=== PATIENT | male | born 1970 | race Caucasian/White ===

== ENCOUNTER → 2016-10-11 | Outpatient (CLI) | payer BC ==
--- OUTSIDE RECORDS SUMMARY | 2016-10-11 14:36 | XMS REPORT | Continuity of Care Document ---
Author Author [facility] Organization [facility] Address Unknown Phone Unavailable Allergies Medications Problems Date Dx Coded Attending Type Code Diagnosis Diagnosed By 05/05/2009 Ot 327.23 08/30/2014 Ot 959.7 08/30/2014 Ot E000.8 08/30/2014 Ot E030 08/30/2014 Ot E849.0 08/30/2014 Ot E928.9 08/30/2014 Ot 813.05 08/30/2014 Ot E000.8 08/30/2014 Ot E928.9 08/30/2014 Ot 785.2 08/30/2014 REMY HULL Ot 719.47 08/30/2014 Ot 959.7 08/30/2014 Ot E000.8 08/30/2014 Ot E030 08/30/2014 Ot E849.0 08/30/2014 Ot E928.9 08/30/2014 Ot 813.05 08/30/2014 Ot E000.8 08/30/2014 Ot E928.9 08/30/2014 Ot 785.2 08/30/2014 REMY HULL Ot 719.47 10/09/2016 Ot 813.05 FX RADIUS HEAD-CLOSED 10/09/2016 Ot E000.8 OTHER EXTERNAL CAUSE STATUS 10/09/2016 Ot E928.9 ACCIDENT NOS 10/09/2016 Ot 785.2 CARDIAC MURMURS NEC 10/09/2016 REMY HULL 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 Visit Date/Time Discharge Status Pt. Type Provider Facility Loc./Unit Complaint [id number] 12/22/2013 15:02:00 2013 23:59:59 CLS Outpatient REMY HULL [facility] RAD MTP JOINT PAIN [id number] 10/11/2016 14:32:00 ACT Outpatient ORELEVON NEGRON DO [facility] RAD NECK PAIN,ARM RADICULOPATHY [id number] 07/05/2011 12:10:00 Document Registration [id number] 06/24/2011 17:48:00 Document Registration [id number] 07/10/2009 16:29:00 Document Registration [id number] 05/04/2009 19:40:00 Document Registration
--- NOTE | 2016-10-11 15:33 | Diagnostic Imaging Report ---
PROCEDURE: MR imaging cervical spine without contrast. TECHNIQUE: Multiplanar, multisequence MR imaging of the cervical spine was performed without contrast. INDICATION: History of neck pain with numbness and burning sensation of the right upper extremity. COMPARISON: None. FINDINGS: Static alignment of the cervical spine is maintained. There is no significant anteroretrolisthesis. There is no evidence of jumped facets. Vertebral body heights are maintained. There is no evidence of acute fracture. Marrow signal is within normal limits throughout. There is mild intervertebral disc height loss and multilevel disc osteophyte complex formations. Small disc bulges are also noted. Cervical cord has a normal appearance. There is no evidence of cord edema. No abnormal intrathecal filling defects are seen. Included portions of the posterior fossa are unremarkable. Pre-and paravertebral soft tissue structures are within normal limits. Axial images demonstrate the following: C2- C3: There is no large disc bulge or focal protrusion. There is bilateral facet arthropathy, left greater than right. There is however no significant spinal canal or neuroforaminal stenosis. C3-C4: There is no large disc bulge or focal protrusion. There is bilateral uncovertebral hypertrophy and facet arthropathy, left greater than right. As a result, there may be mild narrowing of the left neuroforamen. Right neuroforamen and spinal canal are unremarkable. C4-C5: There is no large disc bulge or focal protrusion. There is no significant spinal canal or neuroforaminal stenosis. C5-C6: There is no large disc bulge or focal protrusion. There is no significant spinal canal or neuroforaminal stenosis. C6-C7: There is mild broad-based posterior disc bulge which results in minimal flattening of anterior thecal sac. There is no significant neuroforaminal stenosis. C7-T1: There is no large disc bulge or focal protrusion. There is no significant spinal canal or neuroforaminal stenosis. IMPRESSION: 1. Mild multilevel degenerative changes of the cervical spine, but no significant spinal canal or neuroforaminal stenosis throughout. 2. No acute fracture or dislocation. Dictated by: Dictated on workstation # [id number]
== END ==
LOC: RAD 14:32
PROVIDERS: ATTEND Family Medicine
DX: M47.22 Other spondylosis with radiculopathy, cervical region (principal)
CPT/HCPCS: 72141

== ENCOUNTER → 2019-04-12 | Outpatient (CLI) | payer BC ==
--- NOTE | 2019-04-12 17:12 | Diagnostic Imaging Report ---
PROCEDURE: US Thyroid. TECHNIQUE: Multiple real-time grayscale images were obtained of the thyroid in various projections. INDICATION: Familial thyroid cancer Findings: No comparison available. The right lobe of the thyroid measures 5.1 x 2.1 x 1.6 cm. No suspicious nodules are seen. Size and echogenicity is normal. Left lower the thyroid measures 5.1 x 1.8 x 1.6 cm. The size and echogenicity is normal. No suspicious nodules are seen. The isthmus measures 3 mm. IMPRESSION: 1. Normal thyroid gland. Dictated by: Dictated on workstation # [id number]
== END ==
LOC: RAD 15:46
PROVIDERS: ATTEND Family Medicine
DX: C73 Malignant neoplasm of thyroid gland (principal)
CPT/HCPCS: 76536

== ENCOUNTER → 2022-01-09 | Outpatient (CLI) | payer BC ==
[~2022-01-09] VITALS: Ht 180.3 cm; Wt 112.0 kg
[~2022-01-09] MED LIST: ASCO500C17 PO; CHOL400T29 PO; CYAN-23 PO; MULT-593 PO; OMG1KC PO; PRAV40TA2 PO; ZINC50TA11 PO
== END | disposition home or self-care (01) ==
LOC: PREOP 05:48
PROVIDERS: ATTEND Internal Medicine
DX: Z01.818 Encounter for other preprocedural examination (principal)

== ENCOUNTER 2022-12-04 05:51 | Outpatient (CLI) | payer BC ==
[~2022-12-04] VITALS: Ht 180.3 cm; Wt 117.7 kg
[2022-12-05] MEDS ORDERED: OMEG100032 PO (08:35)
== END 2022-12-05 08:37 | disposition home or self-care (01) ==
LOC: PREOP 05:51
PROVIDERS: ATTEND Internal Medicine
DX: Z01.818 Encounter for other preprocedural examination (principal)

== ENCOUNTER 2022-12-13 07:52 | Day surgery (SDC) | payer BC ==
--- NOTE | 2022-11-29 08:28 | HISTORY AND PHYSICAL ---
COLONOSCOPY HISTORY AND PHYSICAL HISTORY OF PRESENT ILLNESS: The patient is a 52-year-old white male who I initially saw for colonoscopy 1 year ago between his office visits and procedure, he came down with COVID. He reports complete recovery, but he is just not getting around rescheduling colonoscopy. He reports over the last year there have been no changes in health status. He denies abdominal pain, bright red blood per rectum or change in bowel habits. PAST MEDICAL HISTORY: Significant for hyperlipidemia and obesity. Current BMI 35. 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 He has had no significant surgeries in the past 5 years and no past history of abdominal surgery. FAMILY HISTORY: He reports still has no family history for colon cancer. His father did have some colon polyps removed when he was in either his late 60s or early 70s. PHYSICAL EXAMINATION: GENERAL: Reveals a white male, appeared to be in no acute distress. VITAL SIGNS: Weight 259 pounds, BMI 35, blood pressure 104/78, heart rate 70 and regular. HEENT: Unremarkable. Sclerae nonicteric. CHEST: Clear. CARDIOVASCULAR: Reveals a regular rate and rhythm without murmur, S3, or S4. ABDOMEN: Soft, supple without mass, organomegaly, or tenderness. EXTREMITIES: Revealed no cyanosis, clubbing or edema. ASSESSMENT AND PLAN: The patient is being set up for his first screening colonoscopy, deemed to be of average risk. He was seen in the office due to the fact that his BMI is 35 with obstructive sleep apnea. He qualifies for ASA category 3. Prep instructions were given and questions were answered. I thank you for the referral of this pleasant gentleman. Job ID: [id number] DocumentID: [id number] Dictated Date: 11/20/2022 13:30:53 Gift Basket Packer Date: 11/20/2022 13:52:00 Dictated By: SILVANA ESPINOZA MD
[~2022-12-13] VITALS: Ht 180.3 cm; Wt 117.7 kg
[~2022-12-13 07:52] MED LIST changes: +OMEG100032 PO
--- NOTE | 2022-12-13 08:08 | Pre-Op Note & Conscious Sedat ---
Pre-Operative Progress Note Date H&P Reviewed: December 13, 2022 Time H&P Reviewed: 08:07 History & Physical: H&P Reviewed, Patient Examed, No changes noted Pre-Op Diagnosis: screening Moderate Sedation PreProcedure ASA Score 3 Airway Lungs Heart ASA score ASA 1: a normal healthy patient ASA 2: a patient with a mild systemic disease (mid diabetes, controlled hypertension, obesity ASA 3: a patient with a severe systemic disease that limits activity (angina, COPD, prior Myocardial infarction) ASA 4: a patient with an incapacitating disease that is a constant threat to life (CHF, renal failure) ASA 5: a moribund patient not expected to survive 24 hrs. (ruptured aneurysm) ASA 6: a declared brain- patient whose organs are being harvested. For emergent operations, add the letter E after the classification Mallampati Classification Grade 3 Sedation Plan Analgesia, Amnesia, Plan communicated to team members, Discussed options with patient/fam, Discussed risks with patient/fam The patient is an appropriate candidate to undergo the planned procedure, sedation, and anesthesia. The patient immediately re-assessed prior to indication. SILVANA ESPINOZA MD December 13, 2022 08:07
[2022-12-13 08:10] VITALS: BP 137/86
[2022-12-13] MEDS ORDERED: LACTATED RINGERS 1,000 ML IV STA (08:14)
[2022-12-13] MEDS ORDERED: LACTATED RINGERS 1,000 ML IV ONE ×2 (08:17→11:08)
[2022-12-13] MEDS ORDERED: PROPOFOL INJECTION 50 ML IV ONE (09:33)
[2022-12-13] MEDS ORDERED: LACTATED RINGERS 1,000 ML IV SCH (09:45)
[2022-12-13 10:00] VITALS: BP 108/64
[2022-12-13 10:05] VITALS: BP 108/64
--- NOTE | 2022-12-13 10:06 | Progress Note-Post Operative ---
Post-Procedure Note Physician (s)/Technical Internship (s) Physician SILVANA ESPINOZA MD Pre-Procedure Diagnosis Pre-Procedure Diagnosis: screening Post-Procedure Diagnosis Post-operative diagnosis: Prior to undergoing colonoscopy digital rectal evaluation was performed. Anal sphincter tone was normal and the perianal reflex was intact. No abnormalities noted on digital inspection of the anal canal or distal rectal vault. The prostate was unremarkable to digital inspection as well. The colonoscope was inserted into the rectum and under direct visualization advanced to the cecum. The cecum was identified by identification of the ileocecal valve and cecal strap. Photographic documentation was obtained. A careful inspection was made as the colonoscope withdrawn. Quality the prep was good. Findings: There were no evidence for internal/external hemorrhoids and the rectum was unremarkable. One 3 mm sessile polyp was noted in the distal sigmoid colon it was biopsied and ablated with no subsequent blood loss. The remainder the sigmoid colon descending colon splenic flexure transverse colon hepatic flexure ascending colon and cecum were unremarkable. A/P 1. One 3 mm polyp was removed from distal sigmoid colon with an otherwise normal colonoscopy to cecum including digital evaluation of the prostate. As long as there are no surprises on histopathology report we will advocate consideration for repeat screening colonoscopy in 10 years. I thank you for the referral this pleasant gentleman. Sincerely, Silvana Espinoza MD. CC: SILVANA Morgan MD December 13, 2022 10:06
[2022-12-13 10:22] VITALS: BP 108/64
--- NOTE | 2022-12-16 16:16 | Physician Query Clarification ---
LISANDRA RAI 12/16/22 1616: [id number] Proc Desc BodyOP Admission Canned Text Admission Date: Discharge Date: Procedures Procedures Performed Body of the Operative/Procedure Report: There is no detailed documentation specifying how polyp removal was done was done. 1. cold biopsy 2. hot biopsy 3. other, please specify Chief Executive Or Managing Director Note Note From Chief Executive Or Managing Director In responding to this query, please exercise your independent professional judgment. The purpose of this communication is to more accurately reflect the complexity of your patients condition. The fact that a question is asked does not imply that any particular answer is desired or expected. Thank you for your timely response to this clarification. Requestors name: [ ] Phone # [ ] THIS PHYSICIAN QUERY FORM IS A PERMANENT PART OF THE MEDICAL RECORD SILVANA ESPINOZA MD 12/18/22 1608: [id number] Proc Desc BodyOP Physician Response Details: Detailed desc below Chief Executive Or Managing Director Note Note From Chief Executive Or Managing Director hot biopsy LISANDRA RAI December 16, 2022 16:16 SILVANA ESPINOZA MD December 18, 2022 16:08
== END 2022-12-13 10:46 | disposition home or self-care (01) ==
LOC: ENDO 07:52
PROVIDERS: ATTEND Internal Medicine
DX: Z12.11 Encounter for screening for malignant neoplasm of colon (principal); K63.5 Polyp of colon; E66.9 Obesity, unspecified; G47.33 Obstructive sleep apnea (adult) (pediatric); Z68.36 Body mass index [BMI] 36.0-36.9, adult; Z86.16 Personal history of COVID-19; Z28.310 Unvaccinated for COVID-19
CPT/HCPCS: 88305

== ENCOUNTER 2023-03-28 22:54 | Emergency (ER) | payer BC ==
[~2023-03-28] VITALS: Ht 180.3 cm; Wt 107.0 kg
[2023-03-28 23:00] VITALS: BP 141/89
--- NOTE | 2023-03-28 23:58 | ED General ---
General Chief Complaint: Abdominal/GI Problems Stated Complaint: PAIN ON RT SIDE, SOA Nursing Triage Note: Pt presents with c/o RUQ abdominal pain that started around 2200 tonight. Pt reports pain radiated across upper abdomen and then to lower epigastric area. Pain caused shortness of breath, pt reports pain is subsiding, however he still feels like he needs to catch his breath. History of Present Illness Date Seen by Provider: Mar 28, 2023 Time Seen by Provider: 23:47 Initial Comments Patient is a 53yo male to the ER with a complaint of RUQ abdominal pain onset about 10pm this evening. He states that he has pain that seems to radiate across the upper abdomen. He feels like it is uncomfortable to take a deep breath. He did take some tylenol prior to coming in and the pain seems to be improving. No recent illnesses. Currently the pain is about a "3". No nausea. He does feel a little weak. No diarrhea. No urinary complaints. Nothing makes the pain any worse. He has a history of high cholesterol. Timing/Duration: 1-3 Hours Severity: Moderate Associated Systoms: Weakness Allergies and Home Medications Allergies Coded Allergies: No Known Drug Allergies (Unverified , 01/11/22) Patient Home Medication List Home Medication List Reviewed: Yes Ascorbic Acid (Vitamin C) 500 Mg Capsule, 500 MG PO DAILY, (Reported) Entered as Reported by: DOMINIC DAVIS on 01/11/221518 Cholecalciferol (Vitamin D3) (Vitamin D-400) 10 Mcg (400 Unit) Tablet, 10 MCG PO DAILY, (Reported) Entered as Reported by: DOMINIC DAVIS on 01/11/221518 Cyanocobalamin (Vitamin B-12) (Vitamin B-12) 1,000 Mcg Capsule, 1,000 MCG PO DAILY, (Reported) Entered as Reported by: DOMINIC DAVIS on 01/11/221518 Multivitamin with Minerals (Multiple Vitamin) 1 Each Tablet, 1 EACH PO DAILY, (Reported) Entered as Reported by: DOMINIC DAVIS on 01/11/221518 [place]-3/Dha/Epa/Fish Oil (Fish Oil 1,000 mg Softgel) 1,000 Mg (120 Mg-180 Mg) Capsule, 1,000 MG PO DAILY, (Reported) Entered as Reported by: CHAD SNOW on 12/05/22 0835 Pravastatin Sodium (Pravastatin Sodium) 40 Mg Tablet, 40 MG PO DAILY, (Reported) Entered as Reported by: DOMINIC DAVIS on 01/11/22 151 Zinc Gluconate (Zinc) 50 Mg Tablet, 50 MG PO DAILY, (Reported) Entered as Reported by: DOMINIC DAVIS on 01/11/22 1519 Review of Systems Review of Systems Constitutional: see HPI EENTM: no symptoms reported Respiratory: short of breath Cardiovascular: no symptoms reported Gastrointestinal: RUQ Genitourinary: no symptoms reported Musculoskeletal: no symptoms reported Skin: no symptoms reported Psychiatric/Neurological: No Symptoms Reported All Other Systems Reviewed Negative Unless Noted: Yes Past Wzypvff-Hyafip-Jtxiuq Hx Immunizations Up To Date First/Initial COVID19 Vaccinat: NO Second COVID19 Vaccination Jamir: NO Third COVID19 Vaccination Date: NO Seasonal Allergies Seasonal Allergies: No Past Medical History Surgeries: Yes (LEFT HAND/FINGER laceration) Orthopedic Respiratory: Yes Sleep Apnea Currently Using CPAP: Yes Cardiac: No Neurological: No Genitourinary: No Gastrointestinal: No Musculoskeletal: No Endocrine: No HEENT: No Cancer: No Psychosocial: No Integumentary: No Blood Disorders: No Physical Exam Vital Signs Vital Signs - First Documented 03/28/23 23:00 Temp 36.3 Pulse 67 Resp 16 B/P (MAP) 141/89 (106) Capillary Refill : Less Than 3 Seconds Height, Weight, BMI Height: '" Weight: lbs. oz. kg; 32.00 BMI Method: General Appearance: No Apparent Distress, WD/WN Eyes: Bilateral Eye Normal Inspection, Bilateral Eye PERRL, Bilateral Eye EOMI HEENT: PERRL/EOMI Neck: Normal Inspection Respiratory: Lungs Clear, Normal Breath Sounds, No Accessory Muscle Use, No Respiratory Distress Cardiovascular: Regular Rate, Rhythm, Normal Peripheral Pulses Gastrointestinal: Normal Bowel Sounds, Non Tender, Soft Extremity: Normal Inspection, Normal Range of Motion Neurologic/Psychiatric: Alert, Oriented x3, No Motor/Sensory Deficits, Normal Mood/Affect, frit mixer and burner II-XII Norm as Tested Skin: Normal Color, Warm/Dry Progress/Results/Core Measures Suspected Sepsis SIRS Temperature: Pulse: 67 Respiratory Rate: 16 Laboratory Tests 03/28/23 23:01: White Blood Count 10.5 Blood Pressure 141 /89 Mean: 106 Laboratory Tests 03/28/23 23:01: Creatinine 1.14, Platelet Count 314, Total Bilirubin 0.4 Results/Orders Lab Results Laboratory Tests Test 03/28/23 23:01 Range/Units White Blood Count 10.5 4.3-11.0 10^3/uL Red Blood Count 4.76 4.30-5.52 10^6/uL Hemoglobin 14.2 13.3-17.7 g/dL Hematocrit 42 40-54 % Mean Corpuscular Volume 89 80-99 fL Mean Corpuscular Hemoglobin 30 25-34 pg Mean Corpuscular Hemoglobin Concent 34 32-36 g/dL Red Cell Distribution Width 13.5 10.0-14.5 % Platelet Count 314 130-400 10^3/uL Mean Platelet Volume 10.3 9.0-12.2 fL Immature Granulocyte % (Auto) 0 % Neutrophils (%) (Auto) 67 42-75 % Lymphocytes (%) (Auto) 21 12-44 % Monocytes (%) (Auto) 9 0-12 % Eosinophils (%) (Auto) 2 0-10 % Basophils (%) (Auto) 1 0-10 % Neutrophils # (Auto) 7.0 1.8-7.8 10^3/uL Lymphocytes # (Auto) 2.2 1.0-4.0 10^3/uL Monocytes # (Auto) 1.0 0.0-1.0 10^3/uL Eosinophils # (Auto) 0.2 0.0-0.3 10^3/uL Basophils # (Auto) 0.1 0.0-0.1 10^3/uL Immature Granulocyte # (Auto) 0.0 0.0-0.1 10^3/uL Sodium Level 138 135-145 MMOL/L Potassium Level 4.2 3.6-5.0 MMOL/L Chloride Level 104 98-107 MMOL/L Carbon Dioxide Level 24 21-32 MMOL/L Anion Gap 10 5-14 MMOL/L Blood Urea Nitrogen 19 H 7-18 MG/DL Creatinine 1.14 0.60-1.30 MG/DL Estimat Glomerular Filtration Rate 78 BUN/Creatinine Ratio 17 Glucose Level 110 H 70-105 MG/DL Calcium Level 9.8 8.5-10.1 MG/DL Corrected Calcium 9.5 8.5-10.1 MG/DL Total Bilirubin 0.4 0.1-1.0 MG/DL Aspartate Amino Transf (AST/SGOT) 15 5-34 U/L Alanine Aminotransferase (ALT/SGPT) 28 0-55 U/L Alkaline Phosphatase 91 40-136 U/L Total Protein 7.7 6.4-8.2 GM/DL Albumin 4.4 3.2-4.5 GM/DL My Orders Orders - ADITHYA CHRISTINE MD Ekg Tracing (03/28/23 23:59) Cbc With Automated Diff (03/28/23 23:59) Comprehensive Metabolic Panel (03/28/23 23:59) Vital Signs/I&O 03/28/23 23:00 Temp 36.3 Pulse 67 Resp 16 B/P (MAP) 141/89 (106) Capillary Refill : Less Than 3 Seconds Blood Pressure Mean: 106 Progress Note : Time: 01:25 Progress Note Patient seen and examined by me. Evaluation today includes physical exam, CBC, CMP and EKG. Pertinent physical exam findings - WDWN male in NAD. Heart is regular, Lungs are clear. Abdomen is soft and non tender. Normal BS. He has neg Matthews's sign. No other concerning findings on PE. DDx based on H&P includes, dyspepsia, biliary colic, constipation Labs independently reviewed and interpreted by me. HIs CBC, CMP are all WNL. No abnormal findings. Reassurance provided to the patient - suspect his symptoms are GERD related. No concerning findings to consider emergent US of the GB. He does not have a concerning surgical exam. He is comfortable with the plan of care, as labs are not concerning and symptoms are improving. Return precautions provided in both verbal and written format. All questions are sought and answered. ECG Initial ECG Impression Date: Mar 29, 2023 Initial ECG Impression Time: 00:00 Initial ECG Rate: 66 Initial ECG Rhythm: Normal Sinus Initial ECG Intervals: Normal Comment RBBB no ST segment elevation or depression; no ectopy Departure Impression Primary Impression: Nonspecific abdominal pain Disposition: HOME, SELF-CARE Condition: Improved Departure-Patient Inst. Decision time for Depature: 01:27 Referrals: LEVON SULLIVAN DO (PCP/Family) Primary Care Physician Patient Instructions: Abdominal Pain, Adult ED Add. Discharge Instructions: Monitor your symptoms over the next 12 to 24 hours for any concerning changes such as fever, nausea and vomiting and please return to the emergency department for reevaluation if any of these develop. Please make a follow-up with Dr. Sullivan for the next week or 2. Continue your routine home medications. Copy Copies To 1: LEVON SULLIVAN KATHRYN M MD Mar 28, 2023 23:58
[2023-03-29 00:06] LABS: BASOPHILS # (AUTO) 0.1 10^3/uL (0.0-0.1); BASOPHILS % (AUTO) 1 % (0-10); EOSINOPHILS # (AUTO) 0.2 10^3/uL (0.0-0.3); EOSINOPHILS % (AUTO) 2 % (0-10); HEMATOCRIT 42 % (40-54); HEMOGLOBIN 14.2 g/dL (13.3-17.7); LYMPHOCYTES # (AUTO) 2.2 10^3/uL (1.0-4.0); LYMPHOCYTES % (AUTO) 21 % (12-44); MEAN CORPUSCULAR HEMOGLOBIN 30 pg (25-34); MEAN CORPUSCULAR HGB CONC 34 g/dL (32-36); MEAN CORPUSCULAR VOLUME 89 fL (80-99); MEAN PLATELET VOLUME 10.3 fL (9.0-12.2); MONOCYTES % (AUTO) 9 % (0-12); NEUTROPHILS % (AUTO) 67 % (42-75); PLATELET COUNT 314 10^3/uL (130-400); WHITE BLOOD COUNT 10.5 10^3/uL (4.3-11.0)
[2023-03-29 00:11] LABS: ALBUMIN 4.4 GM/DL (3.2-4.5); POTASSIUM 4.2 MMOL/L (3.6-5.0)
[2023-03-29 00:12] LABS: CALCIUM 9.8 MG/DL (8.5-10.1)
[2023-03-29 00:13] LABS: TOTAL PROTEIN 7.7 GM/DL (6.4-8.2)
[2023-03-29 00:15] LABS: BILIRUBIN,TOTAL 0.4 MG/DL (0.1-1.0)
[2023-03-29 00:17] LABS: CREATININE SERUM 1.14 MG/DL (0.60-1.30)
== END 2023-03-29 01:36 | disposition home or self-care (01) ==
LOC: EDUNIT# 22:54 → ER 22:56
DX: R10.9 Unspecified abdominal pain (principal); G47.30 Sleep apnea, unspecified; Z99.89 Dependence on other enabling machines and devices; Z28.310 Unvaccinated for COVID-19
CPT/HCPCS: 36415; 80053; 85025; 93005